=== PATIENT | male | born 1985 | race African-American/Black ===

== ENCOUNTER 2021-03-06 11:56 | Inpatient (IN) | payer OTHER ==
[~2021-03-06] VITALS: Ht 180.3 cm; Wt 68.9 kg
[2021-03-06] MEDS ORDERED: TYLENOL EXTRA500 MG PO (13:29)
[2021-03-06] MEDS ORDERED: XANAX 0.5 MG0.5 M1 PO (13:31)
[2021-03-06] MEDS ORDERED: BACLOFEN5 MG PO (13:32)
[2021-03-06] MEDS ORDERED: NEURONTIN800 MG PO (13:33)
[2021-03-06] MEDS ORDERED: LORAZEPAM 1 MG T1 MG PO (13:42)
[2021-03-06] MEDS ORDERED: SERTRALINE HCL100 MG PO (13:43)
[2021-03-06] MEDS ORDERED: TEMAZEPAM30 MG PO (13:44)
[2021-03-06] MEDS ORDERED: TRAMADOL 50 MG50 MG PO (13:45)
[2021-03-06] MEDS ORDERED: HYDROXYZINE HCL50 MG PO (13:45)
[2021-03-06 17:00] VITALS: BP 121/79
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
[2021-03-06 19:30] VITALS: BP 139/90
--- NOTE | 2021-03-06 20:07 | NUR ---
ADM LORAZEPAM 0.5MG PO FOR ANXIETY. PT LETS STAFF NEEDS KNOWN, PT HAS CALL LIGHT AND URINAL AND HOSPITAL PHONE AT BEDSIDE, PT HAS BED ALARM ACTIVATED.
--- NOTE | 2021-03-06 23:59 | NUR ---
ASSUMED PT CARE AT 1900.PT ALERT,CALM,PLEASENT AND COPERATIVE WITH CARE.PT TOOK ALL HIS MED WHOLE WITH THIN LIQUIDS,SOL WELL.PER REPORT,PT ABLE TO STAND AND JR HIS WT WITH 1-2 ASSIST.URINAL AT BEDSIDE.PT DENIED PAIN SO FAR.PT ABLE TO MAKE HIS NEEDS KNOWN.CALL LIGHT WITHIN REACH.
[2021-03-07 05:31] LABS: HEMATOCRIT 40.8 % (42.0-52.0); HEMOGLOBIN 13.7 gm/dL (14.0-18.0); MCH 32.2 pg (26.0-34.0); MCHC 33.6 g/dL (28.0-37.0); MCV 96.1 fL (80.0-100.0); RBC 4.24 mil/uL (4.50-6.00); RDW 14.2 % (10.5-14.5); WBC 5.4 thou/uL (4.0-11.0)
[2021-03-07 05:55] LABS: CALCIUM 8.9 mg/dL (8.5-10.1)
[2021-03-07 08:21] VITALS: BP 103/69
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
[2021-03-07 14:02] LABS: FOLIC ACID 7.6 ng/mL (8.6-58.9)
--- NOTE | 2021-03-07 15:29 | NUR ---
LATE ENTRY FOR 03/06/21: PT ARRIVED AND HAD VOIDED LARGE AMOUNT INCONTINENTLY. HE REQUESTED SHOWER, AND THIS WAS GIVEN PER GIZZARD SKIN REMOVER, PT REQUIRING MAX ASSIST FOR SHOWERING AND DRESSING AT THAT TIME.
[2021-03-07 19:04] VITALS: BP 125/71
[2021-03-07 22:06] LABS: GLYCOHEMOGLOBIN (HGB A1C) 5.6 % (4.8-5.6)
--- NOTE | 2021-03-08 00:42 | NUR ---
PT ALERT AND ORIENTED X 4. VOIDING ADEQUATE AMTS CLEAR YELLOW URINE PER URINAL. XANAX GIVEN X 1 FOR ANXIETY. PT IRRITABLE AT START OF SHIFT BUT DID APOLOGIZE TO THIS NURSE AND HAS BEEN PLEASANT SINCE. PT DENIES PAIN OR DISCOMFORT. BED ALARM ON FOR SAFETY. PT AWAKE MUCH OF NIGHT. VOICING CONCERNS ABOUT WHAT HE WOULD BE DOING WHEN HE GETS OUT OF HERE. EMOTIONAL SUPPORT PROVIDED. WILL CONTINUE TO MONITOR.
[2021-03-08 07:15] VITALS: BP 119/84
--- NOTE | 2021-03-08 09:13 | NUR ---
ASSUMED CARE AT 0700. PATIENT IS ALERT AND ORIENTED X4. PATIENT CARLITOS'S. PATIENT HAS WEAKNESS IN HIS LEGS. PATIENT IS UP WITH 1 WITH GATI BELT AND WALKER. UP ON SIDE OF BED FOR BREAKFAST. FALL AND SAFETY PROTOCOLS IN PLACE. DENIES PAIN AT TIME. CONTINUES TO PROGRESS SLOWLY TOWARDS D/C GOALS. WILL CONTINUE TO MONITER.
[2021-03-08 19:12] VITALS: BP 117/77
--- NOTE | 2021-03-09 02:07 | NUR ---
ASSUMED CARE FROM DAY SHIFT , C/O BACK AND LEG SPASMS. PO MEDICATION, , PT VERY NEEDDY AT TIMES, SPENDING 2-30 MINS TALKING AND CARING FOR PATIENTS NEEDS, REPOSITONING , PROVIDING COFFEE AND SNACKS. ENCOURAGE PT TO TURN , PT STATED THAT HE FEELS BETTER ON BACK AND TRY TO TURN AND REST ON SIDE. DISCUSSED POC , VERBALIZED UNDERSTANDING AND WILL REPORT CHANGES.
[2021-03-09 08:00] VITALS: BP 118/84
--- NOTE | 2021-03-09 12:31 | NUR ---
cm reached out to [address] [place] [address] to visit with him about his ss disability kostas that was filled prior to acute rehab.
--- NOTE | 2021-03-09 18:45 | NUR ---
PT ATTENDED ALL THERAPIES TODAY. [employer] IN TO SEE PT REGARDING RESTING HAND SPLINT, AND ALSO TO TALK ABOUT A RLE AFO. EDUCATION WAS WELL-RECEIVED BY PT. PT REQUESTED TO SEE TODAY, AND A MESSAGE WAS LEFT WITH HER OFFICE THAT PT WAS REQUESTING THIS. DR. LAY IN TO SEE PT LATER THIS EVENING AND ORDERS RECEIVED. PT STATED THAT HE FELT MUCH BETTER AFTER TALKING WITH DR. ALY. PT HAD BEEN TREATED TWICE WITH XXANAX TODAY FOR ANXIETY, AND NOTED THAT HE WAS FEELING MUCH MORE CALM THIS EVENING.
[2021-03-09 19:15] VITALS: BP 121/78
--- NOTE | 2021-03-10 03:06 | NUR ---
ASSIST UP TO BSC FOR LARGE BM, O/W USING URINAL. APPRECIATES DISCUSSION AND MED ADJUSTMENT WITH DR ALY, AND HAS TAKEN XANAX FOR ANXIETY TWICE SINCE HER CONSULT. APPRECIATES PAIN MED FOR NECK PAIN AND SHOULDER PAIN, ESPECIALLY RIGHT SHOULDER PAIN. IS USING URINAL, LIKES BED IN ABOUT TEN DEGREES TRENDELENBERG TO HELP HIM SLEEP
[2021-03-10 07:15] VITALS: BP 137/94
--- NOTE | 2021-03-10 14:34 | NUR ---
ASSUMED CARE OF PT AT 0700 THIS MORNING. PT IS A/OX4, WITH GENERAL WEAKNESS IN UPPER AND LOWER EXTREMETIES. LUNGS CLEAR IN ALL CRESPO, EYES PERRLA, SKIN INTACT WITH NO TENTING W/D, CR<3SEC, ABD SOFT NONTENDER W/ ACTIVE BOWEL SOUNDS. WEAK PANELBOARD TANK PUMPER AND LEG MOTOR SKILLS. ASSESSMENT OTHERWISE UNREMARKABLE. CALL LIGHT AND OTHER NEEDS PLACED WITHIN REACH. PHYS THERAPY HAS WORKED WITH PT AND HAS HAD GREAT RESULTS.
[2021-03-10 20:00] VITALS: BP 136/83
--- NOTE | 2021-03-11 02:32 | NUR ---
assumed care approx 1900 evening 03/10. pt assisted up to bsc to try and have bm at change of shift. pt mood anxious, irritable, fussy, demanding to staff at beginning of shift. pt given hs meds and seemed to relax and be less anxious. pt requesting food and drink several times in this night and despite sleep meds awake at present eating sandwich in bed and asking for more food. pt voiding per urinal spilling earlier tonight requiring complete bed change. bed alarm on and call light in reach. will continue to monitor.
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
[2021-03-11 19:18] VITALS: BP 135/95
--- NOTE | 2021-03-12 01:42 | NUR ---
REPOSITIONING SELF AND ASKED FOR PILLOW UNDER CALVES. USING URINAL, INCONTINENT OF URINE ONCE. APPRECIATES SLEEPING PILLS, AND XANAX GIVEN BY REQUEST Q 6 HOURS
--- NOTE | 2021-03-12 01:44 | NUR ---
LATE TRAY SANDWICH, NEEDING ASSIST TO OPEN MUSTARD AND MAYONAISE PACKETS.
[2021-03-12 07:15] VITALS: BP 128/50
--- NOTE | 2021-03-12 10:30 | NUR ---
PT AWAKE AT THIS TIME WORKING WITH PT IN BED. PT DIDN'T WANT AM MEDS AT THIS TIME. PLUS PT JUST GOT BREAKFAST HEATED UP.
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
--- NOTE | 2021-03-12 15:23 | NUR ---
ADM XANAX 0.5MG PO FOR ANXIETY.
--- NOTE | 2021-03-12 17:10 | NUR ---
ADM ORALGEL TO CRACKED TOOTH. PT STATED IT HURTS 10 ON 1-10 SCALE.
--- NOTE | 2021-03-12 18:21 | NUR ---
PT SITTING IN DINING ROOM FOR DINNER. PT SCHEDUAL IS OFF DUE TO SLEEPING IN LATE THIS AM.
[2021-03-12 19:30] VITALS: BP 129/88
--- NOTE | 2021-03-12 22:00 | NUR ---
UP IN DINING ROOM TALKING ON PHONE FOR AN HOUR. WHEN ASKED FOR ASSIST TO GO BACK TO ROOM TO USE URINAL, HE WAS INCONTINENT BEFORE HE COULD STAND UP. SLEEPING PILLS AT THAT TIME, DID NOT NEED REPEAT TRAZADONE HE WAS ASLEEP WITHIN AN HOUR. STEVEN TRANSFERRED FROM TO BED WITH ONE PERSON ASSIST.
[2021-03-13 07:15] VITALS: BP 134/72
--- NOTE | 2021-03-13 11:26 | NUR ---
PT ALERT AND ORIENTED TIMES FOUR. VSS. SCHEDULED PAIN MEDICATIONS CONTROLLING PAIN WELL AT THIS TIME. PT TOLERATES MEDS AND MEALS. PT WORKED WELL WITH PT/OT TODAY. PT PROGRESSING TOWRADS POC GOALS.
[2021-03-13 19:15] VITALS: BP 125/84
--- NOTE | 2021-03-14 03:13 | NUR ---
assumed pt care at 1900, pt is awake, alert and orientedx4, sitting in the common area watching tv, dr. Escudero with pt, vss, assessments as charted, pt had period of incontinence; tyl given prn for pain with relief, pt called for xanax as well, given as per jan, sleeping at this time, will continue to monitor and follow poc
--- NOTE | 2021-03-14 08:00 | NUR ---
CHECKED INTO ROOM AND PT IS STILL SLEEPING WITH TOWEL OVER HEAD.
[2021-03-14 09:21] VITALS: BP 112/67
--- NOTE | 2021-03-14 10:33 | NUR ---
PT RECIEVED TRAMADOL 100MG PO FOR COMPLAINTS OF PAIN.
--- NOTE | 2021-03-14 11:38 | NUR ---
PT RECIEVED XANAX 1MG PO FOR ANXIETY.
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
--- NOTE | 2021-03-14 14:29 | NUR ---
PT RECIEVED TYLENOL 500MG PO FOR PAIN.
[2021-03-14 14:38] VITALS: BP 121/94
[2021-03-14 19:26] VITALS: BP 127/88
--- NOTE | 2021-03-14 20:00 | NUR ---
ADM TRAMADOL 100MG PO AND XANAX 1MG PO FOR ANXIETY. PT STATED HIS PAIN IS 10 ON 1-10 SCALE ALL OVER. PT STATED HE GETS WEAKNESS TO LOWER EXT, THE REST OF HIS BODY IS FUNCTIONAL.
--- NOTE | 2021-03-15 05:05 | NUR ---
ASSUMED CARE OF PT AT 1930 ON 03/14/21. PT IS A&OX4. IS ON ROOM AIR. REPORTS GENERALIZED PAIN THAT IS BEING MANAGED WITH PAIN MEDS & OTHER THERAPUETIC TECHNIQUES. PT HAS INCOMPLETE QUADRIPLEGIA/QUADRAPARESIS. IS ABLE TO REPOSITION & PULL SELF UP IN BED. MAY ASK FOR ASSISTANCE WHEN FEELING WEAK. PT CAN BE INAPPROPRIATE WITH STAFF AT TIMES. VOIDS PER URINAL WITH ASSISTANCE. IS INCONTIENT TO BLADDER AT TIMES. PT REFUSES TURNS. PT IS CURRENTLY SLEEPING. CALL LIGHT WITHIN REACH. ROOM ACROSS FROM NURSES STATION. FALL PRECAUTIONS & HOURLY ROUNDING CONTINUED. LABS & VITALS REVIEWED. WILL CONTNUE TO MONITOR.
[2021-03-15 09:57] VITALS: BP 117/54
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
--- NOTE | 2021-03-15 16:04 | NUR ---
PATIENT REQUESTED FOR DIGITAL PRE PRESS OPERATOR TO TAKE HIS $10 TO BUY HIM SKITTLES. SHE CAME BACK WITH A RECEIPT, WHICH HAS BEEN COPIED AND PLACED IN THE CHART. HIS CHANGE WAS $0.17. HE RECEIVED ALL HIS SKITTLES, CHANGE AND THE OROGINAL RECEIPT.
--- NOTE | 2021-03-15 16:22 | NUR ---
ASSUMED CARE AT 0700. PATIENT IS DIAGNOSED WITH INCOMPLETE QUANDRIPELIGIA AND CHRONIC PAIN. A&0X4. ABLE TO MAKE NEEDS KNOWN. REPORTS PAIN IN SHOULDERS RATED 8/10, MANAGED WITH MEDICATION. MAY BE INNAPROPRIATE WITH STAFF. WAS NOTED BEING CONFONTRATIONAL WITH RN AND PRECEPTOR. PATIENT REFUSED MOST OF AM MEDS. ONLY REQUESTED TO TAKE TYLENOL TO HELP MANAGE PAIN. PRN XANAX REQUESTED AND ADMNISTERED TO MANAGE ANXIOUS FEELINGS. CALL LIGHT WITHIN REACH, AND INTERMITTENTLY USED APPROPRIATELY. PATIENT WOULD SOME TIMES CALLOUT FOR NURSE OR RACK PUSHER, AND IS REMINDED TO USED CALL LIGHT. FALL PRECAUTIONS IN PLACE. FREQUENTLY USED ITEMS WITHIN REACH. WILL CONTINUE TO MONITOR.
[2021-03-15 19:50] VITALS: BP 112/70
--- NOTE | 2021-03-16 02:56 | NUR ---
ASSESSED AT START OF SHIFT. PT RESTING IN BED. INCOMPELTE QUADRIPLEGIC RT HAND SPLINTS PLACED AT HS. URINAL AT BEDSIDE. EVENING MEDS GIVEN WHOLE WITH WATER. PT REQUESTED FOR XANAX AND TRAZODONE LATER ON TO HELP WITH SLEEP. FALL PREC IN PLACE AND WILL CONT TO MONITOR.
[2021-03-16 07:30] VITALS: BP 111/77
--- NOTE | 2021-03-16 09:42 | NUR ---
PER HAT MARKER REPORT, PATIENT DID NOT RESPOND WHEN OFFERED BREAKFAST BEFORE THERAPIES THIS MORNING. NURSE SOFTWARE TECHNICIAN ENTERED ROOM AT 0920, AND AWAKENED PATIENT, ENCOURAGED HIM TO GET UP AND EAT BREAKFAST AND OFFERED TO ASSIST HIM TO DO THIS, HIS TRAY WAS UNTOUCHED AT HIS BEDSIDE. PT STATED THAT HE DID NOT WANT TO EAT BREAKFAST. NM NOTED THAT THE BED ALARM WAS NOT ON, AND SET THIS, AND PT ASKED, "DID YOU TAKE SOMETHING FROM DOWN THERE?" NM CLARIFIED THAT THERE WAS A BLINKING LIGHT AND THAT I CORRECTED IT. PT PULLED COVERS OVER HIS HEAD AND NM LEFT THE ROOM PT IS SCHEDULED FOR THERAPY AT 10 AM, AND STAFF WILL RE-ENTER AT THAT TIME TO ASSIST HIM TO THE CHAIR.
--- NOTE | 2021-03-16 10:11 | NUR ---
ASSUMED CARE OF PT AT 0700. PT REFUSED MORNING MEDICATIONS AND BREAKFAST TODAY.
[2021-03-16 19:10] VITALS: BP 107/71
--- NOTE | 2021-03-17 03:31 | NUR ---
Assumed pt care at 1900. A/OX4,VSS. Up to BSC with AX1/GB. Had a large Bm at HS. Voiding per urinal. Pt denied pain on assessment. Took all HS meds w/o any problems. Requested for xanax/Trazadone,medicated per EMAR and effective.Resting quietly at this time w/o any distress noted. Splints applied to hands at HS. Fall precautions in place.
--- NOTE | 2021-03-17 10:10 | NUR ---
CHECKING ON PT ALONG WITH THERAPY. PT DIDN'T WANT TO WAKE UP AT THIS TIME TO TAKE MEDS OR DO THERAPY. TOLD PT TO LET THIS BEER COOLER KNOW WHEN READY FOR HIS MEDS. PT AGREED.
--- NOTE | 2021-03-17 11:01 | NUR ---
PT UP NOW AND WORKING WITH OT. PT REQUESTED PAIN MED AND XANAX. ADM AM MEDS AND TRAMADOL 100MG PO FOR PAIN TO ARMS OF 10 ON 1-10 SCALE AND ALSO XANAX 1MG PO FOR ANXIETY. PT IN A PLEASANT MOOD AND SAYING THANK YOU TO STAFF.
--- NOTE | 2021-03-17 14:43 | NUR ---
PT TOOK 1400 MEDS AFTER WORKING WITH THERAPY. PT PLAYING MUSIC ON HIS PHONE. PT WANTING TO TALK TO JULISSA THAT RUNS THIS PLACE. PT STATED HE MIGHT HAVE TO GO TO A NH. PT NOT VERY POSITIVE ABOUT IT.
--- NOTE | 2021-03-17 15:12 | NUR ---
murphy notified by nurse unite medical practice manager that mary tearful and wants to talk about facility. murphy visited with him, he wanted to know on snf list what facility will give him therapy, education on RA but with [facility] there is not outside hospital rehab except acute rehab, " for get it, will go to my aunt your going to call her any way"/lg. let him know i do not have her name or number. [phone] philippe, you can call her, then he went to work with physical therapy. offered ltc prior to and he refused again, he voiced he wants 24/ cbs at home.
--- NOTE | 2021-03-17 15:32 | NUR ---
PER REPORT BY JACOB HAM OT, PT STATED THAT HIS AUNTIE WILL NOT BE ABLE TO ASSIST HIM IN THE HOME, AND THAT HE IS NOW LOOKING FOR SKILLED CARE PLACEMENT IN A FACILITY. PT REQUESTED TO MEET WITH CINDI SEXTON, AND IN THIS MEETING PT ASKED IF HE WOULD GET THERAPY IF HE WENT TO ANOTHER FACILITY. PT WAS NOTIFIED THAT HE WOULD POSSIBLY GET RESTORATIVE THERAPIES, BUT NOT ACUTE INTENSIVE THERAPIES. PT STATED THAT HE WOULD BE ABLE TO DO THOSE THINGS AT HOME ON HIS OWN. PT THEN REPORTEDLY TOLD CM THAT HE WOULD BE GOING HOME AND NOT TO A FACILITY. PT PARTICIPATED IN THERAPIES TODAY, AND CONTINUES TO BENEFIT FROM ACUTE INPATIENT REHAB.
--- NOTE | 2021-03-17 17:54 | NUR ---
PT REQUEST ANXIETY MEDICATION AND PAIN MED. ADM XANAX 1MG PO FOR ANXIETY, NOT TIME FOR PAIN MEDS AT THIS TIME.
--- NOTE | 2021-03-17 19:42 | NUR ---
ADM TRAMADOL 100MG PO FOR PAIN ALL OVER OF 10 ON 1-10 SCALE. PT ASKED IF ANY MORE FOR PAIN.
[2021-03-17 20:00] VITALS: BP 124/86
--- NOTE | 2021-03-18 00:19 | NUR ---
PT ALERT AND ORIENTED X 4. UP IN W/C MOST OF EVENING. TRANSFERRED TO BED AT WITH ASSIST X 2. PT ARGUMENTATIVE AT TIMES. INFORMED PT THAT HE COULD NOT HAVE SLEEPING PILLS AFTER 10 PM. STATES WELL SOMEONE SHOULD BE FIRED BECAUSE THEY GAVE ME SLEEPING PILLS AFTER 10 PM SATURDAY NIGHT. ALSO HAS SNOTTY REMARKS TO STAFF. 2 NURSES IN ROOM FOR ANY INTERACTIONS TONIGHT. PT STATES HE IS MISSING A PAIR OF BLACK JOGGING PANTS SIZE 32. 2 NURSES SEARCHED ROOM AND CHECKED LAUNDRY ROOM AND UNABLE TO FIND. MESSAGE LEFT FOR JULISSA NURSE CAR BARN LABORER ON HER ANSWERING MACHINE. BED ALARM ON FOR SAFETY. PT APPEARS TO BE SLEEPING ON HOURLY ROUNDS.
[2021-03-18 08:00] VITALS: BP 100/66
--- NOTE | 2021-03-18 11:56 | NUR ---
ASSUMED CARE AT 0700. A&OX4. REPORTS HAVING GENERALIZE PAIN, BUT PAIN IN NECK IS PROMINENT AND RATED AT 8/10. PAIN MANAGED WITH SCHEDULED TYLENOL. PATIENT REQUESTED FOR ONLY SCHEDULED BACLOFEN & GABAPENTIN TO BE ADMINISTERED, AND REFUSED OTHER MEDS AND VITAMINS. PATIENT ALSO REQUESTED FOR PRN XANAX, FOR ANXIETY. PATIENT HAS BEEN COOPERATIVE THIS MORNING, PRESENTING W/ FLAT AFFECT. REQUESTED FOR SOME READING MATERIAL TO BE PRINTED, AND HAS BEEN PROVIDED TO PATIENT. CONTINUES TO USE URINAL FOR VOIDING. NO ISSUES AT THIS TIME. WILL CONTINUE TO MONITOR.
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
[2021-03-18 19:09] VITALS: BP 119/77
--- NOTE | 2021-03-18 22:00 | NUR ---
ORANGE JUICE WITH HS MEDS PER REQUEST. TOOK ONE TRAMADOL AND 1 MG XANAX PRN AT HS IN ADDITION TO REGULAR MEDS, DOOR OPEN BY REQUEST IN CASE HE CANNOT USE CALL LIGHT TONIGHT WITH RIGHT WRIST BRACE ON. QUIET AND WANTING TO REST.
--- NOTE | 2021-03-19 10:44 | NUR ---
ASSUMED CARE OF PT AT 0715. PT IS OX4. HAS BEEN SLEEPING MOST OF MORNING. PT IS ON ROOM AIR. REPORTS GENERALIZED PAIN THAT IS BEING MANAGED WITH PAIN MEDS & OTHER THERAPUETIC TECHNIQUES. HAS BRACE ON RIGHT HAND. CONTINUES TO TAKE XANAX PRN FOR ANXIETY. LIKES TO TAKE MEDS WITH ORANGE JUICE POURED IN A CUP. IS UP WITH 1 ASSIST, GB, WALKER TO BSC. FALL PRECAUTIONS & HOURLY ROUNDING CONTINUED THIS SHIFT. PT IS ABLE TO REPOSITION SELF IN BED. LABS & VITALS REVIEWED. PT IS CURRENTLY SLEEPING. CALL LIGHT WITHIN REACH. WILL CONTINUE TO MONITOR.
[2021-03-19 19:31] VITALS: BP 131/69
[2021-03-19 20:40] VITALS: BP 121/65
--- NOTE | 2021-03-19 22:30 | NUR ---
PT ASSESSMENT COMPLETED AND VSS. MEDS GIVEN ORDERED AND WELL TOLERATED. ANXIETY AND SLEEP MEDICATION HELPFUL. ASST PT WITH REPOSITION FOR COMFORT. PT VOIDING LARGE AMOUNT OF YELLOW URINE. PT SLEEPING WELL AT THIS TIME. WILL CONTINUE TO MONITOR FREQUENTLY.
[2021-03-20 05:41] LABS: HEMOGLOBIN 12.7 gm/dL (14.0-18.0); MCH 32.5 pg (26.0-34.0); MCHC 33.4 g/dL (28.0-37.0); MCV 97.1 fL (80.0-100.0); RBC 3.92 mil/uL (4.50-6.00); RDW 13.9 % (10.5-14.5); WBC 5.1 thou/uL (4.0-11.0)
[2021-03-20 05:44] LABS: CALCIUM 8.9 mg/dL (8.5-10.1); CREATININE 0.9 mg/dL (0.7-1.3); POTASSIUM 4.1 mmol/L (3.5-5.1)
[2021-03-20 07:15] VITALS: BP 124/73
--- NOTE | 2021-03-20 10:55 | NUR ---
Assumed pt care at 0700. pt was alert and oriented x4. Assessments completed, vss. pt was unco-operative, rude with assessments and rn medical inpatient services. pt stated he had never taken Bupropion. development writer EDUCATED PT ABOUT BUPROPION. Pt insisted to speak to Dr. Fan, Yuni was notified about pt request and behavior.
--- NOTE | 2021-03-20 12:38 | NUR ---
NM VISITED WITH PATIENT THIS AM AFTER HE VOICED CONCERNS ABOUT HIS MEDICATIONS AND REFUSED TO TAKE SOME OF HIS MEDS FOR THE RN. DURING DISCUSSION, PT HAD BEEN TRYING TO EAT LUNCH, AND HE WAS NOT ABLE TO NURSING INFORMATICS ANALYST HIS UTENTILS TO GET THE FOOD TO HIS MOUTH. PT MADE SEVERAL ATTEMPTS, BUT WAS UNABLE TO MANIPULATE HIS FINGERS DUE TO WEAKNESS AND SPASTICITY. PT EXPRESSED FRUSTRATION THAT HIS HANDS WERENT WORKING. WHEN ASKED IF THIS WAS A NEW THING, HE STATED THAT IT WAS. NM NOTED THAT PT VERBALIZED MISTRUST OF HIS MEDICATIONS, AND IT IS NOTED THAT PT DID START ON A FEW NEW MEDICATIONS INCLUDING BUPROPRION PRIOR TO THE NEW ONSET WEAKNESS. PT STILL REFUSING TO TAKE THE BUPROPION, AND REQUESTED INFORMATION ABOUT THE MED BEFORE HE AGREED TO TAKE ANY MORE OF IT. NM ASSISTED PT TO FINISH HIS BREAKFAST, AND OT ARRIVED TO WORK WITH HIM AND PROVIDED FOAM HANDLE FOR HIS UTENSIL. NM LEFT TO NOTIFY THE MD OF HIS UE WEAKNESS, AND CALL WAS PLACED TO ANDREI BERMUDEZ NP FOR DR. LESLIE, WHO ORDERED A HEAD AND NECK CT WITHOUT CONTRAST TO RULE OUT ANY CHANGES. BUPROPION WAS NEVER TAKEN, AND NM DISCUSSED WITH VALENTE NEWMAN. PRINTOUTS OF BUROPION EDUCATION WERE HANDED TO THE PATIENT AND HE WAS ENCOURAGED TO READ AND ASK QUESTIONS. WILL FOLLOW CLOSELY AND NOTIFY DR. ALY LATER TODAY ON ROUNDS IF PT CONTINUES TO REFUSE TO TAKE THE BUPROPION.
--- NOTE | 2021-03-20 14:23 | NUR ---
ONGOING ASSESSMENT: CM HAD A DISCUSSION W/CARE TEAM AND PT AND HIS AUNT ([phone]). PT AUNT AND PT ASKED ABOUT SNF THAT ACCEPT MEDICAID. [facility] SAID THEY HAVE A CONTRACT W/MED [place] AND DO ACCEPT MED [place] FOR SNF. CM FAXED REFERRAL [phone]. JULISSA/CLASSIFYING MACHINE OPERATOR APPROVED SUBMITTING REFERRAL. ALSO, PER JULISSA/CLASSIFYING MACHINE OPERATOR, MEDICAID STATED THEY WILL NOT APPROVE A LATERAL TRANSFER TO A DIFFERENT ACUTE FACILITY. PT ALSO IDENTIFIED TWO COUSINS, ROSELINE AND SHIRA THAT HE WOULD LIKE HIS AUNT TO ASK TO CONSIDER BEING HIS C/G IF MEDICAID WOULD PAY THEM. CM LFT MESSAGE FOR PT'S AUNT.
[2021-03-20 20:05] VITALS: BP 128/75
--- NOTE | 2021-03-21 02:43 | NUR ---
PATIENT TAKING ALL MEDS WITH ORANGE JUICE THIS SHIFT. 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 HE ASKED THAT HE NOT BE AWAKENED SPECIFICALLY FOR MORNING GABAPENTIN AND BACLOFEN UNTIL HE IS UP FOR SOMETHING ELSE. HE IS AWARE THAT HE CAN HAVE XANAX AGAIN AT 0410 OR LATER IF HE REQUESTS AND THAT DR ALY HAS ORDERED BUSPAR TO START SCHEDULED WITH MEALS STARTING THIS MORNING 03/21 IN ORDER TO HELP HIM FURTHER WITH HIS ANXIETY. USING URINAL, TURNED TO HIS RIGHT AT O100 PER HIS REQUEST. QUIET MANNER
--- NOTE | 2021-03-21 13:06 | NUR ---
team meeting, recommendation: cm reached to out to [facility], clarify they thought he was medicare and do not take medmo for rehab. afsaneh go to aunts house rt she already cares for her disabled son and afsaneh have extra people in her house. no other family caregivers rt family issues. will re address LTC and will re team, rakan moved 03/31, will need to find location to dc?
--- NOTE | 2021-03-21 17:18 | NUR ---
NM MET WITH PATIENT FOR EXTENDED TIME AFTER HE WAS RE-FITTED FOR CUSTOM AFO BY [employer]. ATTEMPTED TO CALL THE MEDICAID [place] FLOOR [place], AND THEIR OFFICE HOURS ARE 0830-3PM. WILL ATTEMPT TO CALL AGAIN FOR THE ASSESSMENT TOMORROW WITH THE PATIENT. CALL PLACED TO JACE, PT'S SISTER AT [phone], AND NM LEFT A MESSAGE ON HER VM TO REQUEST A CALL BACK TO THE OFFICE OR CELL PHONE TO DISCUSS DC PLANNING. PT REQUESTED THAT NM CALL AUNT QUAN, AND CALL WAS PLACED TO HER. QUAN WAS GETTING READY TO GO ON A VACATION, BUT SHE DISCUSSED CONCERNS WITH PATIENT OVER SPEAKER PHONE WITH NM PRESENT, THEY DISCUSSED WHAT ROOM PATIENT WOULD BE ABLE TO STAY IN, AND HER SITUATION WITH THE OTHER DISABLED PERSON WHO IS LIVING IN HER HOME. SHE STATED THAT SHE NEEDS TIME TO RENOVATE HER LIVING SPACE IN THE BASEMENT, PUT UP A WALL FOR PATIENT TO HAVE A ROOM. SHE STATED THAT THIS WOULD TAKE SOME TIME, AND SHE WAS LIKELY NOT GOING TO HAVE IT DONE BEFORE 03/31. SHE ASKED ABOUT SNF, AND WE DISCUSSED THAT MEDICAID DID NOT PROVIDE THAT BENEFIT. PT VISIBLY FRUSTRATED AND TEARFUL AFTER CALL ENDED, STATING, "I CAN'T LIVE IN A HALF-WAY. I WOULD RATHER LIVE UNDER A BRIDGE SOMEWHERE." PT NOT RECEPTIVE TO THE IDEA OF SHORT TERM STAY UNTIL RENOVATIONS COULD BE COMPLETED, STATING, "SHE HAS HAD 2 YEARS TO COMPLETE THE RENOVATIONS. IT WILL NEVER GET DONE." ASSISTED PT WITH MEAL TRAY SETUP AND GAVE EMOTIONAL SUPPORT. PT REQUESTED XANAX, AND THIS REQUEST WAS NOTED TO HIS RN. PT IN THE CARE OF DYNAMOMETER REPAIRER AT PRESENT TIME. CORDELL COCHRAN HAS BEEN UPDATED OVER THE PHONE OF THE STATUS OF DC PLANNING.
--- NOTE | 2021-03-21 19:32 | NUR ---
ASSUMED CARE AT 0700. PT IS A&OX4. REPORTS GENERALIZED PAIN RATED AT 6/10. PAIN MANAGED WITH SCHEDULED TYLENOL. HAS HX OF ANXIETY AND ANXIOUS FEELINGS ARE TANVI WITH PRN XANAX. NEW ORDER FOR BUSPIRONE INITIATED TODAY. PATIENT REFUSED SOME OF HIS MORNING MEDICATIONS. EXHIBITED SOME FURSTRATION DURING SHIFT ABOUT STAFFS RESPONSE TO HIS CALL LIGHT. REASSURANCE PROVIDED THAT STAFF TRIES THEIR BEST TO ENSURE HIS NEEDS ARE MET AT A TIMELY MANNER. REFUSED TO HAVE DINNER AND PREFFERED TO ONLY DRINK PROTEIN DRINK (ENSURE). ASSIST OF 1 WITH GAITBELT W/ TRANSFERS. CONTINENT OF BOWEL AND HAD A BM BURING SHIFT. CONTINUES TO USE URINAL FOR VOIDING. REPORTS THAT HIS HANDS ARE FEELING A BIT BETTER TODAY, WAS ABLE TO HAVE BREAKFAST INDEPENDENTLY, BUT REQUIRED SOME ASSISSTANCE WITH HIS OATMEAL. NO CONCERNS AT THIS TIME, WILL CONTINUE TO MONITOR.
[2021-03-21 19:33] VITALS: BP 129/89
--- NOTE | 2021-03-22 01:33 | NUR ---
PATIENT IS SLEEPING AT THIS TIME, WANTS TO SLEEP UNTIL 0830 ONLY IF THAT LONG. STATES THAT HE WAS STILL TOO GROGGY WHEN THERAPY STARTED AND BREAKFAST HAD ALREADY COME, WILL OFFER O6OO MEDS AND PRN XANAX IF NOTICED TO BE AWAKE BETWEEN 0500 AND 0700, AND THAT HE IS OK WITH. HAS USED URINAL TWICE SO FAR THIS SHIFT WITHOUT ASSIST. PILLOWS TO SUPPORT CALVES AND SHOULDERS APPRECIATED. MEDS GIVEN WHOLE WITH ORANGE JUICE.
--- NOTE | 2021-03-22 10:15 | NUR ---
DUE TO FINE MOTOR DISABILITIES, PT IS UNABLE TO DIAL THE PHONE WITHOUT ASSISTANCE, AND PT REQUESTED THAT NM ASSIST HIM TO CALL MEDICAID REGARDING ASSESSMENT FOR HOME AND COMMUNITY BASED SERVICES, TO CALL SOCIAL SECURITY DISABILITY REGARDING HIS APPLICATION FOR DISABILITY, AND TO CALL THE HOUSING AUTHORITY TO INQUIRE ABOUT ACCESSIBLE HOUSING OPTIONS FOR DISCHARGE. CALL WAS PLACED TO MEDICAID AT [phone] AND INITIAL INTAKE ASSESSMENT INFORMATION WAS GIVEN BY THE PATIENT AND NM TO DEMIAN LOYOLA AT THE MEDICAID OFFICE. WE WERE INFORMED THAT THIS ASSESSMENT REQUEST WAS ASSIGNED A HIGH PRIORITY DUE TO THE PENDING DISCHARGE DATE COMING UP SOON, AND PT'S NEED FOR SERVICES TO BEGIN EARLY NEXT WEEK. NM GAVE 2 CALL-BACK NUMBERS PER PT REQUEST, THE NM CELL AND OFFICE NUMBERS, AND PT GAVE APPROVAL TO LEAVE A VOICEMAIL ON EITHER NUMBER. MEDICAID ADVISED THAT PT CONTACT THE HOUSING AUTHORITY REGARDING HOUSING OPTIONS POST-DISCHARGE, HE EXPRESSED TO HER THAT HIS AUNT'S RESIDENCE MAY NOT BE AN OPTION ANYMORE. SOCIAL SECURITY DISABILITY OFFICE WAS CALLED AT THE NUMBER ON THEIR WEBSITE, AND THE CUSTOMER SERVICE ATTENDANT CONVEYED THAT PT WAS APPROVED FOR DISABILITY, BUT THAT HE WAS SUPPOSED TO CALL THEM AND NEVER DID. SHE STATED THAT HE WAS MAILED A LETTER ON 02/27/21 IN THIS REGARD, AND THAT CUSTOMER SERVICE ATTENDANT DAISHA ATTEMPTED TO REACH HIM ON HIS PHONE AND HE NEVER ANSWERED. PT INFORMED THEM THAT HE HAD BEEN IN THE HOSPITAL AND AT HIS REQUEST, NM STATED THE DATE OF HIS INITIAL HOSPITALIZATION AT [facility] ON 03/02/21. CUSTOMER SERVICE ATTENDANT UPDATED THEIR SYSTEM WITH A NOTE TO REFLECT THIS INFORMATION AND RECOMMENDED THAT WE CALL DAISHA RADHADUKE AT [phone] EXTENSION [phone]. THIS NUMBER WENT TO DAISHA'S VOICEMAIL, AND PT LEFT A MESSAGE EXPLAINING THAT HE WAS IN THE HOSPITAL THE WHOLE TIME THAT DAISHA HAD BEEN TRYING TO REACH HIM, AND THAT HE WAS NOT AWARE UNTIL TODAY THAT HE WAS TO CONTACT HER. BOTH NM PHONE NUMBERS WERE LEFT IN THE MESSAGE WITH A REQUEST FOR THE CUSTOMER SERVICE ATTENDANT TO CALL US BACK SOON POSSIBLE. PT IS IN GOOD SPIRITS, AND IS CURRENTLY PARTICIPATING IN OCCUPATIONAL THERAPY.
--- NOTE | 2021-03-22 19:34 | NUR ---
ASSUMED CARE AT 0700. A&0X4. REPORTS GENERALIZED PAIN RATED 6/10. PAIN MANAGED WITH PRN TRAMADOL AND SCHEDULED TYLENOL. PATIENT REPORTS BEING STRESS ABOUT FAMILY ISSUES. SPACE AN TIME PROVIDED FOR PATIENT TO EXPRESS FEELINGS AND PRN XANAX USED TO MANAGE ANXIOUS FEELINGS. ASSIST OF 1 WITH WALKER AND GAITBELT FOR TRANSFERS. CONTINUES TO USE URINAL TO VOID. REPORTS FEELING BETTER WITH CONTROLING AND MANUPULATING HANDS TODAY. REQUIRED SET-UP ONLY DURING MEALS. NO CONCERNS AT THIS TIME, WILL CONTINUE TO MONITOR.
[2021-03-22 20:00] VITALS: BP 123/95
--- NOTE | 2021-03-23 05:16 | NUR ---
ASSUMED PT CARE AT 1900.PT WAS OBSERVED TO BE IN BED WITH HIS EYES CLOSED AT SHIFT CHANGE.PT WAS RUDE TOWARDS THE AD OPERATIONS INTERN AND NURSE WHEN HE WOKE UP.PT WAS VERY NEEDY AND WANTS HIS NEEDS MET FIRST BEFORE ANY OTHER PATIENT.PT WAS FRUSTRATED ABOUT STAFF ANSWERING HIS CALL LIGHT FROM THE NURSES STATION.PT STATED "THAT WAS SO RUDE" PT WAS INFORMED THAT WE ANSWER THE CALL LIGHTS FROM THE NURSES STATION THEN COME TO THE ROOM IF NEEDED.PT NOT HAPPY ABOUT THAT.PT NOT COMPLIANT WITH FALL PRECAUTIONS.PT ASKED THE AD OPERATIONS INTERN TO LEAVE HIS ROOM AFTER SHE PUT HIM ON A COMMODE,PT WAS INFORMED ABOUT THE FALL PROTOCOL.PT REF HIS HAND SPLINT AT HS.PT REPOSITIONED WITH MULTIPLE PILLOWS.URINAL AT BEDSIDE.PT SLEEPING AT THIS TIME.
--- NOTE | 2021-03-23 09:58 | NUR ---
ASSUMED CARE OF PATIENT AT SHIFT CHANGE. ASSESSMENT CHARTED. AFTER BREAKFAST, PATIENT C/O HUNGER; AGITATED BECAUSE PRIMER INSPECTOR BROUGHT BREAKFAST TRAY IN TOO EARLY AND TOOK IT BACK OUT AND "LIED WHEN I WOKE UP ASKING FOR MY TRAY; SAID SHE COULDN'T GET HIM ME FOR BREAKFAST, LATER AT 0915 SAHARA, AND THEN TRIES TO GIVE ME SOME OLD FOOD." PATIENT ALSO C/O PAIN AND ANXIETY; PRN MEDS ADMINISTERED PER MAR. PATIENT REQUESTED TO SPEAK WITH C4 PLANNER; JULISSA NOTIFIED. PATIENT DID EAT A MUFFIN AND ORANGE JUICE. PT TO WORK WITH PATIENT AT 1000. WILL CONTINUE TO MONITOR
--- NOTE | 2021-03-23 10:50 | NUR ---
discussed dcp with nurse bernardo castro, and FEATHER SHAPER. this ss disability is active, manager product marketing working on cbs from medicaid with lg, and calling the housing auth office. offered extended stay motels, ltc doesnt usually do short term stay for ltc. will cont following as needed for dc needs.
[2021-03-23 19:30] VITALS: BP 142/100
--- NOTE | 2021-03-24 01:59 | NUR ---
ASSUMED CARE OF PT AT 1915 ON 03/23/21. PT WAS A&OX4, WAS TEARFUL. PT STATED, "IT'S MESSED UP THAT MY FAMILY DOESN'T WANT ME TO COME STAY WITH THEM. I GUESS, I'M GONNA GONE & GO TO THIS FDC. I WOULDN'T NEVER DO THAT TO THEM. I'M JUST GOING TO CUT THEM OFF". THIS NURSE USED THERAPUETIC COMMUNICATION WITH PT. PT THANKED ME FOR LISTENING & TALKING WITH HIM. PT IS STABLE. IS CURRENTLY SLEEPING AT THIS TIME. IS UP WITH 1 ASSIST, GB, STAND PIVOT TO CHAIR & COMMODE. FALL PRECAUTIONS & HOURLY ROUNDING CONTINUED THIS SHIFT. PT HAS BRACES FOR BOTH UPPER & LOWER LES. LABS & VITALS REVIEWED. CALL LIGHT WITHIN REACH. WILL CONTINUE TO MONITOR. IS ABLE TO TURN SELF IN BED.
[2021-03-24 07:15] VITALS: BP 112/73
--- NOTE | 2021-03-24 14:26 | NUR ---
Assumed pt care at 7am.Pt in bed sleeping and wanted rn to come back to his room when breakfast tray arrived.Pt finally woke up around 0830.Assisted with tray setup at all meals.Good appetite.Meds given as ordered and well tolerated.Pt went out per wc with one of the therapist for fresh air.Upon return,pt requested for xanax. It was given.Fall bundle in place.Pt constantly asking for day camp unit leader for personal discussion.Pt in bed resting at present and listening to music on his phone.Will continue to monitor.
[2021-03-24 20:35] VITALS: BP 157/110
[2021-03-24 20:36] VITALS: BP 152/109
--- NOTE | 2021-03-25 02:21 | NUR ---
PT CARE ASSUMED WITH PT IN BED WATCH LISTENING TO MUSIC AT 1900.PT IS A/O X4.PT IS UP WITH X1 ASSIST AND GAIT BELT AND WALKER TO BSC OR W/C.PT USES A URINAL TO VOIDS.PT ABLE TO MAKE NEEDS KNOW TO STAFF.FALL PRECAUTIONS IN PLACE.PT ASKED FOR XANX X2 DURING SHIFT.PAIN MANAGED WITH TYLENOL AND TRAMADOL FOR PAIN MANAGEMENT PRN.PT ASKED FOR COFFE.WILL CONTINUE TO MONITOR
[2021-03-25 07:15] VITALS: BP 102/58
--- NOTE | 2021-03-25 17:44 | NUR ---
ASSUMED CARE AT 0700. PATIENT REQUESTED TO BE LEFT ALONE IN THE MORNING, AND DID NOT WANT TO TAKE MEDICATION UNTIL 1100. REPORTED GENERALIZED PAIN, MANAGED WITH SCHEDULED TYLENOL. REPORTS ANXIOUS FEELINGS, MANAGED WITH PRN XANAX. PATIENT HAS BEEN CALM MOST OF SHIFT. ASSIT OF 1 WITH WALKER AND GAIT BELT WITH TRANSFERS. REFUSED MORNING VITAMINS AND STOOL SOFTNER. BOWEL SOUND PRESENT AND ACTIVE, HAD 1 MEDIUM BM DURING SHIFT. PATIENT PARTICIPATED IN SCHEDULED THERAPIES. NO CONCERNS AT THIS TIME, WILL CONTINUE TO MONITOR.
[2021-03-25 20:22] VITALS: BP 112/73
--- NOTE | 2021-03-26 02:59 | NUR ---
KEITH FOR ANXIETY AFTER EATING SALAD, WASN'T SURE HE WANTED MELATONIN, THEN HE ASKED FOR IT WITH AN EXTRA STRENGTH TYLENOL TO HELP HIM SLEEP. DECLINED COLACE DUE TO BM TODAY. PILLOWS UNDER SHOULDERS AND ELBOWS, AND UNDER CALVES. READING BIBLE UNTIL MIDNIGHT
--- NOTE | 2021-03-26 16:44 | NUR ---
ASSUMED CARE AT 0700. PATIENT REQUESTED TO BE LEFT ALONE IN THE MORNING, AND REQUESTED FOR MORNING MEDS TO BE ADMINISTERED LATER. REFUSED MORNING STOOL SOFTNER AND VITAMINS. REQUESTED FOR XANAX TO MANAGE ANXIOUS FEELINGS. EXHIBITED DISTRESS, BECAUSE TODAY IS MOTHER'S DAY AND HE HAS LOST HIS MOTHER. TIME AND SPACE PROVIDED TO ALLOW PATIENT TO VENT AND CRY. COMFORT PROVIDE TROUGH ENCOURAGEMENT. C/O OF GENERALIZED PAIN MANAGED WITH SCHEDULED TYLENOL. PARTICIPATED IN SCHEDULED PHYSICAL THERAPY. NO CONCERNS AT THIS TIME, WILL CONTINUE TO MONITOR.
--- NOTE | 2021-03-27 00:18 | NUR ---
PT LYING IN BED. VOIDING PER URINAL. DENIES NEED FOR PAIN MEDICATION. REFUSED HAND SPLINTS. ASKED NOT TO BE DISTURBED BEFORE 0700.
[2021-03-27 07:28] VITALS: BP 106/54
[2021-03-27 08:49] LABS: HEMATOCRIT 45.2 % (42.0-52.0); HEMOGLOBIN 15.1 gm/dL (14.0-18.0); MCHC 33.4 g/dL (28.0-37.0); MCV 95.9 fL (80.0-100.0); RBC 4.71 mil/uL (4.50-6.00)
[2021-03-27 09:00] LABS: CALCIUM 9.7 mg/dL (8.5-10.1); CREATININE 1.1 mg/dL (0.7-1.3); MAGNESIUM 1.9 mg/dL (1.8-2.4)
--- NOTE | 2021-03-27 10:37 | NUR ---
Received awake on bed. Due medications given as prescribed, able to swallow meds w/o difficulty. On room air. Vital signs stable. On MS, not on telemetry; no complains and signs of chest pain, crushing sensation and heaviness. Assisted in ADLs; incomplete quad. Cooperative with AM meds administration and cares. On regular diet- tolerating well; assisted and encouraged in eating and drinking; no nausea, no vomiting and no abdominal pain noted. Falls bundle in place. Using urinal to pass urine. No IV noted. No skin issues noted as well. No complains and signs of pain noted during morning assessment. To continue monitoring patient.
[2021-03-27 20:05] VITALS: BP 116/79
--- NOTE | 2021-03-28 01:09 | NUR ---
ASSUMED PT CARE AT 1900.PT WAS OBSERVED LYING ON HIS BED WITH HIS EYES CLOSED AT SHIFT CHANGE.PT UP WITH ASSIST TO THE BSC,NO BM NOTED.URINAL AT BEDSIDE.PT REF TO WEAR HIS HAND SPLINT AT HS.NO BEHAVIORS NOTED FROM PT SO FAR.PT SLEEPING ON HIS BED AT THIS TIME.CALL LIGHT WITHIN REACH.
[2021-03-28 07:15] VITALS: BP 111/62
--- NOTE | 2021-03-28 13:07 | NUR ---
team meeting, recommendation: wanting to go home to aunts house with cbs through med[employer]. wheel chair in process through [employer]. he will need breonna walker. bsc if going home. electric wheel in works at [facility]. ability diego breonna through medicaid if his fiance can try him. dc 14, has phone call meeting for 2pm on with medicaid for cbs.
[2021-03-28 19:32] VITALS: BP 125/86
--- NOTE | 2021-03-28 22:57 | NUR ---
ASSUMED CARE OF PT AT 1915. PT IS A&OX4. REPORTED BEING DOWN & DEPRESSED THIS EVENING REGARDING IS DISCHARGE SITUATION. PT REPORTED THAT HE WANTS TO GO HOME WITH FAMILY & NOT TO THE CORRECTION. HOWEVER, FAMILY IS NOT WILLING TO TAKE HIM IN. THERAPUETIC COMMUNICATION PROVIDED. PT IS STABLE. IS SLEEPING AT THIS TIME. CALL LIGHT WITHIN REACH. FALL PRECAUTIONS & HOURLY ROUNDING CONTINUED THIS SHIFT. LABS & VITALS REVIEWED. PT IS UP WITH 1 ASSIST, GB, STAND PIVOT TO CHAIR & BSC. WILL CONTINUE TO MONITOR.
[2021-03-29 07:15] VITALS: BP 98/64
--- NOTE | 2021-03-29 13:47 | NUR ---
[facility] facility per don unable to meet his needs and can not accept for ltc.
[2021-03-29 19:27] VITALS: BP 125/79
--- NOTE | 2021-03-30 02:56 | NUR ---
PATIENT INFORMED THAT GABAPENTIN INCREASED TO HELP PATIENT WITH ANXIETY, XANAX GIVEN AT HS AND IS AVAILABLE NOW SINCE 6 HOURS HAS PASSED, PATIENT SPECIFICALLY SAID TO PLEASE NOT WAKE HIM JUST FOR PILLS, WHETHER THEY BE XANAX, BACLOFEN, OR GABAPENTIN, THAT HE WOULD MUCH RATHER SLEEP, AT LEAST UNTIL BREAKFAST. RIGHT WRIST BRACE DISCUSSED, BUT NOT APPLIED. DID NOT ASK FOR TRAZADONE THIS SHIFT. USING URINAL. PATIENT IS ABLE TO TAKE PILLS WHOLE, NEEDING TO USE BOTH HANDS TO BALANCE MED CUP AND WATER CUP WITH STRAW. PILLOWS UNDER ELBOWS FOR COMFORT, IS ABLE TO TURN SELF TO SIDE WITHOUT ASSIST DESPITE PRESENCE OF PILLOWS, FEET ELEVATED WITH PILLOWS UNDER CALVES.
--- NOTE | 2021-03-30 14:51 | NUR ---
cm called amalia poon and [facility] to see if reviewed the referral sent yesterday, not review yet. will call cm back with question. cm notified by nurse bernardo manage that his fiance agus will assist him in the home and she will be ready for him tomorrow at his aunt renees house. he will need wheel chair transportation home. will cont following as needed for dc needs.
[2021-03-30] MEDS ORDERED: MELATONIN5 M1 PO (16:03)
[2021-03-30] MEDS ORDERED: NEURONTIN800 MG PO (16:03)
[2021-03-30] MEDS ORDERED: VITAMIN D325 MC1 PO (16:03)
[2021-03-30] MEDS ORDERED: PEPCID20 MG PO (16:03)
[2021-03-30] MEDS ORDERED: REMERON 30 MG T30 M1 PO (16:03)
[2021-03-30] MEDS ORDERED: BACLOFEN5 MG PO (16:03)
[2021-03-30] MEDS ORDERED: TYLENOL EXTRA500 MG PO (16:03)
[2021-03-30] MEDS ORDERED: TRAZODONE HCL100 MG PO (16:03)
[2021-03-30] MEDS ORDERED: WELLBUTRIN XL300 MG PO (16:03)
[2021-03-30] MEDS ORDERED: FOLIC ACID1 MG PO (16:03)
[2021-03-30 19:22] VITALS: BP 132/84
--- NOTE | 2021-03-30 19:56 | NUR ---
ASSUMED CARE AT 0700. A&OX4. ABLE TO MAKE NEEDS KNOWN. REPORTED FEELING OF ANXIETY, TIME AND SPACE PROVIDED TO EXPRESS HIMSELF. PRN XANAX USED TO MANAGE ANXIOUS FEELINGS. REPORTS GENERALIZED PAIN, MANAGED WITH PRN TRAMADOL AND SCHEDULED TYLENOL. PATIENT IS PLANNING TO DISCHARGE TOMMORROW 03/31, WALKER WILL BE DELIVERED AROUND 0930 BEFORE PATIENT DISCHARGE AT NOON. AT APPROXIMETLY NOON TRANSPORT WILL CALL THE NURSES STATION, AND PATIENT SHOULD BE WHEELED DOWN BY STAFF TO ENTRANCE OF BUILDING B. ON COMING STAFF HAS BEEN NOTIFIED OF DISCHARGE PLANS. NO CONCERNS AT THIS TIME WILL CONTINUE TO MONITOR.
--- NOTE | 2021-03-30 22:14 | NUR ---
ASSUMED CARE OF PT AT 1920. PT IS A&OX4. IS ON ROOM AIR. REPORTS GENEALIZED PAIN THAT IS BEING MANAGED WITH ORAL MEDS & OTHER THERAPUETIC TECHNIQUES. IS STABLE. SLEEP AID ADMINISTERED REQUESTED. IS UP WITH 1 ASSIST, GB STAND PIVOT TO CHAIR & COMMODE. FALL PRECAUTIONS & HOURLY ROUNDING CONTINUED THIS SHIFT. IS ABLE TO TURN SELF IN BED. LABS & VITALS REVIEWED. WILL CONTINUE TO MONITOR.
[2021-03-31 07:30] VITALS: BP 102/50
[2021-03-31] MEDS ORDERED: WELLBUTRIN XL300 MG PO ×2 (08:16→09:26)
[2021-03-31] MEDS ORDERED: WELLBUTRIN SR100 MG PO ×2 (08:16→09:26)
[2021-03-31] MEDS ORDERED: FOLIC ACID1 MG PO (09:26)
[2021-03-31] MEDS ORDERED: REMERON 30 MG T30 M1 PO (09:26)
[2021-03-31] MEDS ORDERED: VITAMIN D325 MC1 PO (09:26)
[2021-03-31] MEDS ORDERED: TRAZODONE HCL100 MG PO (09:26)
[2021-03-31] MEDS ORDERED: BACLOFEN5 MG PO (09:26)
[2021-03-31] MEDS ORDERED: MELATONIN5 M1 PO (09:26)
[2021-03-31] MEDS ORDERED: PEPCID20 MG PO (09:26)
[2021-03-31] MEDS ORDERED: NEURONTIN800 MG PO (09:26)
--- NOTE | 2021-03-31 09:39 | NUR ---
per outpt [facility] pharmacy total cost vouched medication $ 42.11. 5n bedside staff to [employer] his meds at outpt pharmacy for him to talk home to aunts house. transportation will be here by noon, he will need to be taking to [facility] to [facility]. send vouch fww home wit him from [facility]. dc today
[2021-03-31 11:58] VITALS: BP 102/50
[2021-03-31 13:15] VITALS: BP 102/50
[2021-03-31 13:51] VITALS: BP 102/50
== END 2021-03-31 13:20 | disposition home or self-care (01) | DRG 947 ==
PROVIDERS: Nurse Practitioner Family; ADMIT Physical Medicine & Rehabilitation; ATTEND Physical Medicine & Rehabilitation
DX: R53.81 Other malaise (principal); G82.54 Quadriplegia, C5-C7 incomplete; E83.42 Hypomagnesemia; K02.9 Dental caries, unspecified; F43.23 Adjustment disorder with mixed anxiety and depressed mood; F19.10 Other psychoactive substance abuse, uncomplicated; F17.210 Nicotine dependence, cigarettes, uncomplicated; G47.00 Insomnia, unspecified; Z79.899 Other long term (current) drug therapy
CPT/HCPCS: 10112